=== PATIENT | female | born 1990 | race African-American/Black ===

== ENCOUNTER 2024-12-06 16:17 | Outpatient (AMB) | payer OTHER, SELFPAY ==
[2024-12-06 16:27] VITALS: BP 101/56; PULSE 84; TEMP 36.6; O2SAT 100; BMI 33.2
--- NOTE | 2024-12-06 16:27 | A.OFFPC_ITS ---
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 Accompanied by: Self / Same As Patient Allergies iodine Allergy (Severe, Verified 12/06/24 16:32) Anaphylaxis shellfish derived Allergy (Severe, Verified 12/06/24 16:43) Anaphylaxis Tobacco use date assessed: 12/06/24 Dental Screening Dental Screen Date: 12/06/24 Did you have a dental visit in the last 12 months?: Yes Did you have a dental problem in the last 6 months where you did not have access to dental care?: No Was dental information given to patient?: Patient has dentist HPI HPI Comments History of Present Illness Details History of Present Illness The patient is a 34-year-old female presenting for management of asthma, insomnia, and evaluation for sleep apnea. Asthma: - The patient reports well-controlled as thma with the use of albuterol and Wixela, with the last exacerbation occurring two weeks ago requiring nebulizer therapy. Insomnia: - The patient experiences significant in somnia, previously treated with mental health medications, which led to non-functionality, prompting discontinuation. Suspected Sleep Apnea: - The patient reports symptoms suggestiv e of sleep apnea, including snoring, daytime fatigue, and episodes of apnea observed by her . Gastritis: - The patient has a history of gastritis , which is a chronic condition. Cholelithiasis: - The patient is being referred to a gen eral surgeon for evaluation of gallstones and potential cholecystectomy. Review of Systems - Respiratory: Reports well-controlled a sthma with occasional exacerbations. Denies current dyspnea or wheezing. - Neurological: Reports insomnia and day time fatigue. Denies headaches or dizziness. - Gastrointestinal: Reports chronic srikanth ritis. Denies abdominal pain or nausea. - Sleep: Reports snoring, observed apnea , and daytime fatigue. 10-point ROS reviewed and negative excep t as noted in HPI Past Medical History - Asthma, controlled with albuterol and Wixela - Insomnia, previously treated with ment al health medications - Gastritis Health Maintenance - Referral to emergency veterinary assistant for weight ma nagement - Sleep study referral for evaluation of sleep apnea - Referral to general surgeon for evalua tion of gallstones Physical Exam General: Well-appearing, in no acute distress. Vital signs: Within normal limits. HEENT: Normocephalic, atraumatic. PERRLA, EOMI. Conjunctiva clear, sclera anicteric. Oropharynx clear, mucous membranes moist. TMs intact bilaterally. Neck: Supple, no lymphadenopathy, no thyromegaly, no JVD or carotid bruits. Cardiovascular: RRR, normal S1/S2, no murmurs, rubs, or gallops. Peripheral pulses 2+ and symmetric. No edema. Respiratory: Lungs clear to auscultation bilaterally, no wheezes, rales, or rhonchi. Normal effort. Patient reports asthma is well-controlled with Albuterol and Wixela. Abdomen: Soft, non-tender, non-distended. Normoactive bowel sounds. No hepatosplenomegaly, no masses. History of gastritis noted. MSK: Full range of motion, no joint swelling or deformity. Normal gait. Skin: Warm, dry, intact. No rashes, lesions, or pallor. Neuro: Alert and oriented x3. Cranial nerves II-XII intact. Strength 5/5 throughout. Sensation intact. Reflexes 2+ symmetric. Normal coordination and gait. Psych: Appropriate mood and affect. Normal judgment and insight. Patient reports history of insomnia and anxiety, previously treated with mental health medications. Plan 1. Asthma - Continue current asthma management wit h albuterol and Wixela. Monitor for exacerbations and adjust treatment as needed. 2. Insomnia - Evaluate current sleep hygiene and con main line assembler non-pharmacological interventions to improve sleep quality. 3. Suspected Sleep Apnea - Conduct a sleep study to confirm the d iagnosis of sleep apnea and determine appropriate treatment options. 4. Gastritis - Continue monitoring gastritis symptoms and consider dietary modifications to manage symptoms. 5. Cholelithiasis - Referral to a general surgeon for eval uation and discussion of potential cholecystectomy. Discussion Notes I discussed with the patient the management of her asthma, including the continuation of her current medications, albuterol and Wixela. We also talked about her insomnia and the importance of evaluating her sleep hygiene. I recommended a sleep study to assess for sleep apnea and referred her to a general surgeon for evaluation of gallstones. Additionally, I advised her to see a emergency veterinary assistant for weight management. Patient was informed and verbally consented to the use of an ambient scribe for clinic note documentation during this visit. Patient Instructions - Continue using albuterol and Wixela as prescribed for asthma. - Follow up with a sleep study to malinda roberts for sleep apnea. - Schedule an appointment with a general surgeon to discuss gallstones. - Consult with a emergency veterinary assistant for dietar y advice and weight management. [facility] Medical History (Updated 12/06/24 @ 16:50 by Dannie Galvan MD) Sleep apnea Fatigue Snoring Insomnia Vitamin D deficiency, unspecified Biliary calculi Family History (Updated 12/06/24 @ 16:53 by NOLBERTO Mcguire) Mother Diabetes Hypertension Father No known health problems Maternal Grandmother Diabetes Social History Housing: House Patient Tobacco Use Status: Never used Tobacco e-Cigarette/Vaping Use: Never Used service: No Current occupational status: employed Cognitive needs: No Hearing needs: No Vision needs: No Questionnaire PHQ-9 Over the last 2 weeks, how often have you been bothered by any of the following problems? 1. Little interest or pleasure in doing things: several days 2. Feeling down, depressed, or hopeless: several days 3. Trouble falling or staying asleep, or sleeping too much: several days 4. Feeling tired or having little energy: several days 5. Poor appetite or overeating: several days 6. Feeling bad about yourself - or that you are a failure or have let yourself or your family down: several days 7. Trouble concentrating on things, such as reading the newspaper or watching television: not at all 8. Moving or speaking so slowly that other people could have noticed. Or the opposite - being so fidgety or restless that you have been moving around a lot more than usual: not at all 9. Thoughts that you would be better off or of hurting yourself in some way: not at all Total score: 6 Depression Screening Interpretation: Negative Depression Screening Done: Yes Source: Developed by Drs. Wily Frankel, Zeenat Rodriguez, Arthur Bazan and colleagues, with an educational benedict from [employer]. Thrive Questionnaire I am a: Patient What is your living situation today?: I have a steady place to live Within the past 12 months, did the food you bought not last and you didn't have the money to get more?: Never true Within the past 12 months, did you worry whether your food would run out before you got money to buy more?: Sometimes True Do you have trouble paying for medicines?: No Do you have trouble getting transportation to medical appointments?: No Do you have trouble paying your heating and electricity bill?: No Do you have trouble taking care of your child, family member or friend?: No Are you currently unemployed and looking for a job?: No Are you interested in more education?: No Please select the resources that you would like help with: None Currently or been in a relationship where the following occur: I choose not to answer THRIVE Score: 1 AUDIT C Alcohol Use Questionnaire (AUDIT-C) 1. How often do you have a drink containing alcohol?: Never Total Score: 0 BRETT-7 AMB Questionnaire BRETT-7 Feeling nervous, anxious, or on edge: 1 = Several days Not being able to stop or control worryin = Nearly every day Worrying too much about different things: 3 = Nearly every day Trouble relaxin = Nearly every day Being so restless that it is hard to sit still: 1 = Several days Becoming easily annoyed or irritable: 3 = Nearly every day Feeling afraid as if something awful might happen: 3 = Nearly every day Total BRETT-7 score (0-4 normal; 5-9 mild; 10-14 moderate; 15-21 severe): 17 Source: Developed by Drs. Wily Frankel, Zeenat Rodriguez, Arthur Bazan and colleagues, with an educational benedict from [employer]. ACT Questionnaire In the past 4 weeks, how much of the time did your asthma keep you from getting as much done at work, school or at home?: Some of the time During the past 4 weeks, how often have you had shortness of breath?: 1-2 times a week During the past 4 weeks, how often did your asthma symptoms wake you up at night or earlier than usual in the morning?: Once or twice per week During the past 4 weeks, how often have you had to use your rescue inhaler or nebulizer medication?: 2-3 times a week How would you rate your asthma control during the past 4 weeks?: Somewhat controlled Score: 17 Physical exam (Primary Care) Vital Signs: Last Vital Signs Temp 97.9 F 12/06/24 16:27 Pulse 84 12/06/24 16:27 BP 101/56 L 12/06/24 16:27 Pulse Ox 100 12/06/24 16:27 BMI result Body Mass Index 33.2 Tobacco/Smoking Status: Tobacco use Status Tobacco use date assessed 12/06/24 12/06/24 16:54 Patient Tobacco Use Status Never used Tobacco 12/06/24 16:54 e-Cigarette/Vaping Use Never Used 12/06/24 16:54 PHQ-9: PHQ-9 Score PHQ-9: Total score 6 12/06/24 16:43 Depression Screening Interpretation: Negative Currently or been in a relationship where the following occur: I choose not to answer Coding Level of Care Code New Pt Level 3 (71705) Diagnoses Fibromyalgia M79.7 Encounter to establish care Z76.89 Encounter for screening, unspecified Z13.9 Counseling, unspecified Z71.9 Screening for hypertension Z13.6 Screening for lipoid disorders Z13.220 Screening for diabetes mellitus Z13.1 Screening for depression Z13.31 Routine screening for STI (sexually transmitted infection) Z11.3 Screening for HIV (human immunodeficiency virus) Z11.4 Adjustment disorder with anxiety F43.22 Class 1 obesity E66.811 Insomnia G47.00 Snoring R06.83 Fatigue R53.83 Sleep apnea G47.30 Biliary calculi K80.20 Mild persistent asthma J45.30 Gastritis K29.70 Assessment & Plan Assessment & Plan (1) Fibromyalgia: Code(s): M79.7 - Fibromyalgia Category: Medical (2) Encounter to establish care: Code(s): Z76.89 - Persons encountering health services in other specified circumstances (3) Encounter for screening, unspecified: Code(s): Z13.9 - Encounter for screening, unspecified (4) Counseling, unspecified: Code(s): Z71.9 - Counseling, unspecified (5) Screening for hypertension: Code(s): Z13.6 - Encounter for screening for cardiovascular disorders (6) Screening for lipoid disorders: Code(s): Z13.220 - Encounter for screening for lipoid disorders (7) Screening for diabetes mellitus: Code(s): Z13.1 - Encounter for screening for diabetes mellitus (8) Screening for depression: Code(s): Z13.31 - Encounter for screening for depression (9) Routine screening for STI (sexually transmitted infection): Code(s): Z11.3 - Encounter for screening for infections with a predominantly sexual mode of transmission (10) Screening for HIV (human immunodeficiency virus): Code(s): Z11.4 - Encounter for screening for human immunodeficiency virus [HIV] (11) Adjustment disorder with anxiety: Code(s): F43.22 - Adjustment disorder with anxiety (12) Class 1 obesity: Code(s): E66.811 - Obesity, class 1 (13) Insomnia: Code(s): G47.00 - Insomnia, unspecified Category: Medical (14) Snoring: Code(s): R06.83 - Snoring Category: Medical (15) Fatigue: Code(s): R53.83 - Other fatigue Category: Medical (16) Sleep apnea: Code(s): G47.30 - Sleep apnea, unspecified Category: Medical (17) Biliary calculi: Code(s): K80.20 - Calculus of gallbladder without cholecystitis without obstruction Category: Medical (18) Mild persistent asthma: Code(s): J45.30 - Mild persistent asthma, uncomplicated (19) Gastritis: Code(s): K29.70 - Gastritis, unspecified, without bleeding Plan Orders: Orders Complete Blood Count Auto Diff Today Z13.9 - Encounter for screening, unspecified, Z76.89 - Persons encountering health services in other specified circumstances Comprehensive Met. Panel Today Z13.9 - Encounter for screening, unspecified, Z76.89 - Persons encountering health services in other specified circumstances Hepatitis B Surface Antibody Today Z13.9 - Encounter for screening, unspecified, Z76.89 - Persons encountering health services in other specified circumstances Magnesium Today Z13.9 - Encounter for screening, unspecified, Z76.89 - Persons encountering health services in other specified circumstances Vitamin D 1,25 dihydroxy Today Z13.9 - Encounter for screening, unspecified, Z76.89 - Persons encountering health services in other specified circumstances Hemoglobin A1c Today Z13.9 - Encounter for screening, unspecified, Z76.89 - Persons encountering health services in other specified circumstances Hepatitis B Surface Antigen Today Z13.9 - Encounter for screening, unspecified, Z76.89 - Persons encountering health services in other specified circumstances Hepatitis C Antibody Today Z13.9 - Encounter for screening, unspecified, Z76.89 - Persons encountering health services in other specified circumstances HIV Ab/Ag Today Z13.9 - Encounter for screening, unspecified, Z76.89 - Persons encountering health services in other specified circumstances Lipid Panel Today Z13.9 - Encounter for screening, unspecified, Z76.89 - Persons encountering health services in other specified circumstances TSH reflex Free T4 Today Z13.9 - Encounter for screening, unspecified, Z76.89 - Persons encountering health services in other specified circumstances UA CC w/rflx Micro + Cult Today Z13.9 - Encounter for screening, unspecified, Z76.89 - Persons encountering health services in other specified circumstances Vitamin B12 and Folate Today Z13.9 - Encounter for screening, unspecified, Z76.89 - Persons encountering health services in other specified circumstances Referrals Nutrition/Dietitian Referral E66.811 - Obesity, class 1
== END 2024-12-06 17:03 | disposition home or self-care (01) ==
LOC: HO.HMCFMS 16:17
PROVIDERS: PCP Student in an Organized Health Care Education/Training Program; Visit Provider Student in an Organized Health Care Education/Training Program
DX: M79.7 Fibromyalgia (principal); F43.22 Adjustment disorder with anxiety; E66.811 Obesity, class 1; G47.00 Insomnia, unspecified; R06.83 Snoring; Z68.33 Body mass index [BMI] 33.0-33.9, adult; R53.83 Other fatigue; G47.30 Sleep apnea, unspecified; K80.20 Calculus of gallbladder without cholecystitis without obstruction; J45.30 Mild persistent asthma, uncomplicated; K29.70 Gastritis, unspecified, without bleeding

== ENCOUNTER → 2024-12-06 16:17 | Outpatient (BNVA) | payer OTHER, SELFPAY | PROVIDERS: PCP Student in an Organized Health Care Education/Training Program; Visit Provider Student in an Organized Health Care Education/Training Program | DX: Z76.89 Persons encountering health services in other specified circumstances (principal); J45.30 Mild persistent asthma, uncomplicated; M79.7 Fibromyalgia; F43.22 Adjustment disorder with anxiety; E66.811 Obesity, class 1; Z68.33 Body mass index [BMI] 33.0-33.9, adult; G47.00 Insomnia, unspecified; R06.83 Snoring; R53.83 Other fatigue; G47.30 Sleep apnea, unspecified; K80.20 Calculus of gallbladder without cholecystitis without obstruction; K29.70 Gastritis, unspecified, without bleeding; Z13.31 Encounter for screening for depression | CPT/HCPCS: 96160; 99202 ==

== ENCOUNTER 2024-12-11 08:02 | Outpatient (REF) | payer OTHER, SELFPAY ==
--- OUTSIDE RECORDS SUMMARY | 2024-12-11 08:16 | XMS_ITS | Patient Health Record ---
Author Organization Formerly [facility] n Address [address] [place] [address] Care Team Providers Care Deputy Director Of Finance Name Role Phone Lamont Wiggins Primary Care Provider [phone] Sanket Edmonds Unavailable [phone] Rosalia Antunez Unavailable Remigio Sutherland Unavailable [phone] [facility] Unavailable [phone] Opal Jasso Unavailable Jim Faria Unavailable [phone] Allergies Allergen (clinical drug ingredient) Drug/Non Drug Allergy documented on EMR Reaction Allergy Type Onset Date Status Iodine anaphylaxis Drug Allergy Activ e Shellfish (FN) Shellfish-derived Products anaphylaxis Drug Allergy Active Results Component Value Reference Range Notes HEPATITIS ACUTE PANEL Reviewed date:07/10/2024 03:00:33 PM Interpretation: Performing Lab: Notes/Report: Hep A IgM Non Reactive NON REACTIVE Hep B Core IgM Non Reactive NON REACTIVE Hep C Ab (IgM/IgG) Non Reactive NON REACTIVE IMRL LIC 338 Instrument: cadence 8000 Method: ELECTROCHEMILUMINISCENCE IMMUNOASSAY ECLIA Since: 04/10/2021 REFERENCE VALUE: NON REACTIVE HAV IgM:Hepatitis A Virus IgM. Present during the recent acute phase of infections. Appearance 4-6 weeks and disappearance 3-4 months. About half of those tested in [place] have had this form of hepatitis. HEP Bcore IgM:is a reliable marker for acute disease for hepatitis B infection. At times this marker is the only one demostrated for the diagnosis of a hepatitis B viral infection. Appearance 2-12 weeks and disapperance 3-6 months.. HEP Bs Ag:Hepatitis Bs Antigen. Earliest indicator of the presence of acute infection;if the level of this antigen persists in the blood,the patient is considered to be a carrier. Appearance 4-12 weeks and disapperance 1-3 months. HEP C:Hepatitis C Virus Antibodies. Indicates that the patient has presumptive evidence of infection with HCV. The incubation period is 2 to 26 weeks after exposure. Appearance 1-4 months and disappearance 2 years. For diagnostic purposes, the results should always be assessed in conjuntion with the patient's medical history, clinical examination and other findings. HEPATITIS C: Assay performance characteritics have not been established by cash processing specialist for ,infants children, or populations of immunocompromised or immunosuppressed patients. IMMUNO REFERENCE ESTABLISH VALIDATION FOR IMMUNOCROMPROMISED OR IMMUNOSUPPRESSED PATIENTS. FOR PEDIATRICS ESTABLISH INFANTS,AND CHILDREN (5 TO 17 YEARS). SINCE August MT: HALINA. JEWEL CASTILLO LIC. 7109 Hep Bs Ag Non Reactive NON REACTIVE TSH Reviewed date:07/10/2024 03:00:33 PM Interpretation: Performing Lab: Notes/Report: VITAMINA D-25 OH HYDROXY Reviewed date:07/10/2024 03:00:33 PM Interpretation: Performing Lab: Notes/Report: T4 FREE Reviewed date:07/10/2024 03:00:33 PM Interpretation: Performing Lab: Notes/Report: RPR Reviewed date:07/10/2024 03:00:33 PM Interpretation: Performing Lab: Notes/Report: A1C(GLYCOHEMOGLOBIN) Reviewed date:07/10/2024 03:00:33 PM Interpretation:Normal Performing Lab: Notes/Report: Microalbumin and Creatinine Ratio Reviewed date:07/10/2024 03:00:33 PM Interpretation: Performing Lab: Notes/Report: [facility] LIC 338 Method: OH CHANA [id number] SINCE MAY 30, 2014 Method: cadence 8000 SINCE APRIL 21, 2021 NORMAL VALUES FOR CREATININE, SPOT URINE: NOT ESTABLISHED. NORMAL VALUE FOR MICROALBUMIN, SPOT URINE: LESS THAN 3.0 mg/dL. ALBUMINURIA CATEGORIES IN CKD (Albumin Creatinine Ratio): Spot collection Stage (mg/g creatinine) A1 Normal < 30 A2 Moderately increased 30 - 299 A3 Clinical albuminuria >= 300 RECHECKED BY REPEAT TESTING. MT: MARYJUANCHO. JEWEL CASTILLO LIC. 7109 CHLAMYDIA/GONORRHOEAE Reviewed date:07/10/2024 03:00:33 PM Interpretation: Performing Lab: Notes/Report: [facility] LIC 338 REFERENCE VALUE: NEGATIVE Method: Since 05/31/2014 HOLOGIC [place]. Neisseria gonorrhoeae is one of the common sexually transmitted diseases (STD) in the whole world. It is the gutierrez approach to early and fast diagnosis for early treatment and shutting infection off. Neisseria gonorrhoeae causes acute urethritis in males, which if untreated can develop into epididymitis, prostatitis, and urethral stricture. In females, the primary site of infection is the endocervix. An important complication i females is development of pelvic inflammatory desease which contributes to infertility. Asymptomatic infections occur often in females but in frequently in males. Chlamydia trachomatis is one of the most significant sexually transmitted human pathogens. Chlamydia trachomatis causes urethritis, cervicitis, proctitis, salpingitis and endometritis in women and epidimitis and proctitis in men. If early diagnosis and treatment fail, these infections can result in acute epidymitis in the male, or pelvic inflammatory disease in the female. Many chlamydial infections in women remain untreated which may result in low-grated inflammation in the Fallopian tubes, a leading contributor to infertility. This organism can also be transmitted in the canal, potentially resulting in conjunctivitis. MT: HALINA. JEWEL CASTILLO LIC. 7109 HIV 1/2 5th generation Reviewed date:07/10/2024 03:00:33 PM Interpretation: Performing Lab: Notes/Report: [facility] LIC 338 If REACTIVE results follow up the HIV-1/2 antibody differentiation assay. [facility] has introduced a next generation HIV assay with the [employer] BioPlex 2200 HIV Ag-Ab assay. This is the first commercial screening assay to be able to distinguish between HIV-1 antibodies, HIV-2 antibodies and HIV-1 p24 antigen in serum or plasma samples. In addition to the early detection offered by 4th generation assays, this 5th Generation assay provides more information by specifically identifying HIV-1 or HIV-2 and allows results of antigen and antibody detection to be reported individually. Because antigens and antibodies are detectable at different stages of the infection, reporting of both helps to differentiate between acute and established HIV infection. HIV-1 and HIV-2 are the two types of HIV, with HIV-1 being the most widespread worldwide. The two viruses are similar but distinct and different, which means that tests targeted to one type, will not detect the other. The [employer]lex 2200 HIV Ag-Ab assay is a multiplex flow immunoassay intended for the simultaneous qualitative detection and differentiation of the individual analytes HIV-1 p24 antigen, HIV-1 (groups M and O) antibodies, and HIV-2 antibodies in a single reaction vessel using a mixture of four populations of dyed microparticles. A specimen found to be initially reactive, should be retested in duplicate using a sample from the original source. Reactivity in either or both of these duplicate tests, is highly predictive of the presence of HIV-1, p24 and/or HIV-2 antibodies in people at increased risk for HIV infection. However,because of possible non-specific reactions due to other causes, it is appropriate to do further testing (example: HIV Confirmation Test and HIV PCR ). MT: HALINA. [address]EWEL [address]STILL[address] LIC. 7109 CMP Reviewed date:07/10/2024 03:00:33 PM Interpretation: Performing Lab: Notes/Report: LIPID PANEL Reviewed date:07/10/2024 03:00:33 PM Interpretation: Performing Lab: Notes/Report: CBC W/ DIFF Reviewed date:07/10/2024 03:00:33 PM Interpretation: Performing Lab: Notes/Report: [Nemo CAGLEMPR / $.05 / ILME / [id number] / [id number] / 0] COMMENT METHOD: BY SYSMEX XN-550 MT: HALINA. JEWEL [address]STILL[address] LIC. 7109 URINALISIS Reviewed date:07/10/2024 03:00:33 PM Interpretation: Performing Lab: Notes/Report: Pap Smear, 1 Slide Reviewed date:07/17/2024 10:58:47 AM Interpretation:Abnormal Performing Lab: Notes/Report: Abnormal DIAGNOSIS: LSIL HPV, high-risk Reviewed date:07/17/2024 10:58:47 AM Interpretation:Positive Performing Lab: Notes/Report: Positive HPV, high-risk Positive Reason For Referral Reason Please evaluate marissa ent presenting RUQ pain that worsen when eating fatty foods on abdomen US cholelithiasis Diagnosis 1 Cholelithiasis (K80. 20) Referral Organization [facility] Referring Provider First Name Rosalia Referring Provider Last Name Simone amguire Referring Provider Speciality General Pr actice Referred Provider Specialty Surgery Referral Priority Routine Medications Medication SIG (Take, Route, Frequency, Duration) Notes Start Date End Date Status Ondansetron HCl 8 MG Tablet 1 tablet as needed Orally Once a day; Duration: 30 day(s) 12/07/2022 Unknown Wixela Inhub 250-50 MCG/ACT Aerosol Powder Breath Activated 1 puff Inhalation Twice a day; Duration: 30 days 09/01/2023 Unknown Albuterol Sulfate HFA 108 (90 Base) MCG/ACT Aerosol Solution 2 puff as needed Inhalation every 6 hrs; Duration: 30 days 09/01/2023 Unknown Albuterol Sulfate (2.5 MG/3ML) 0.083% Nebulization Solution 1 amp Inhalation every 4-6 hrs; Duration: 30 days 08/29/2022 Unknown Fluticasone Propionate HFA 110 MCG/ACT Aerosol 2 puffs Inhalation Twice a day 03/31/2023 Unknown Albuterol Sulfate HFA 108 (90 Base) MCG/ACT Aerosol Solution 2 puffs Inhalation every 4-6 hours 08/29/2022 Unknown Pepcid 20 MG Tablet 1 tablet at bedtime as needed Orally Once a day; Duration: 30 day(s) 12/07/2022 Unknown Social History Tobacco Use: Social History Observation Description Date Details (start date - stop date) Never Smoker NA - NA Sex Assigned At : Social History Observation Description Sex Assigned At Female Social History Social Determinants Social Info Question Answer Notes PRAPARE Date Completed/Updated: 09/13/2024 What is your current housing situation? I have h ousing Are you worried about losing your housing? No What is the highest level of school that you have finished? High school diploma or GED What is your current work situation? Unemployed and seeking work In the past year, have you o r any family members you live with been unable to get any of the following when it was really needed? Check all that apply I do not have problems meeting my needs Has lack of transportation k ept you from medical appointments, meetings, work or from getting things needed for daily living? No How often do you see or talk to people that you care about and feel close to? (For example: talking to friends on the phone, visiting friends or family, going to quaker or club meetings) 3 to 5 times a week How stressed are you? Stress is when someone feels tense, nervous, anxious, or cant sleep at night because their mind is troubled Not at all PRAPARE Score: 5 Sexual History: Social Info Question Answer Notes Sexual Health Questionnaire Sexual History Yes Have you ever had vaginal sex? Yes How frequently have you use condoms during vaginal sex? Never How frequently have you used drugs before or during vaginal sex? Never In the last 90 days have you had vaginal sex? Yes Have you ever had anal sex? No STD History Yes Chlamydia? Yes Sexual Orientation Do you identify as transgender or t ransexual? No Sexual History Had sex in the past 12 months (vaginal, oral, or anal)? Yes with Men only Use protection? No Have you ever had a Sexually transmitted disease ? Yes Chlamydia? Yes GC? No Syphilis? No Herpes? No Other? No Last menstrual period 09/01/2024 Drugs/Alcohol: Social Info Question Answer Notes Drugs Have you used drugs other than those for medical reasons in the past 12 months? Yes Marijuana? Yes Alcohol Screen Did you have a drink containing alcohol in the past year? Yes How often did you have a drink containing alcohol in the past year? Monthly or less (1 point) How many drinks did you have on a typical day when you were drinking in the past year? 1 or 2 drinks (0 point) Points 1 Interpretation Negative PCMH: Social Info Question Answer Notes Mental health/substance use history of patient and family (11 years and older) Do you currently use or have a history of using any drugs? No Communication Needs (1 year and older) Which Communication Need? None Fuctional Status Bathing Able to do this without help Dressing Able to do this without help Eating Able to do this without help Toileting Able to do this without help Transferring (walking, getting in and out of bed ) Able to this without help Do you need help from others to take care of things such as laundry and housekeeping, banking, shopping, using the telephone, food preparation, transportation or taking your own medications? Able to do this without help Does patient have primary hess pport person who helps with his/her daily living activities? N/A Post-Hospital/ED Visit Follow-Up Have yo u been admitted to an ER or Hospital? No Social functioning (18 years and older) Do you suffer from social anxiety Yes How comfortable are you whil e interact with other people in everyday social tasks? Comfortable Medication Therapy Adherence Olvida alguna vez mela los medicamentos para tratar hess enfermedad? Not under pharmacologic therapy Karol los medicamentos a las horas indicadas? Not under pharmacologic therapy Cuando se encuentra zulay, de ja de mela la medicacion? Not under pharmacologic ther apy Si alguna vez le sienta mal, jewell usted de mela la? Not under pharmacologic therapy Family/social/cultural elly cteristics (21 year and older) Are you currently employed? No Social Support System Living with Children What is your education level? GED Behaviors affecting health (1 year and older) Risky se xual behaviour No Oral Health Has not visited dentist in the l ast year Nutrition Eating a balanced diet Second hand smoke exposure No Physical activity No Tobacco Use: Social Info Question Answer Notes Tobacco Use/Smoking Are you a never smoker Tobacco use other than smoking: Are you an other tobac co user? Yes Problems Problem Type SNOMED Code ICD Code Onset Dates Problem Status W/U Status Risk Notes Problem Morbid obesity (disorder) (242191943) Morbid (severe) obesity due to excess calories (E66.01) Active confirmed Problem Hypercalcemia (15393537) Hypercalcemia (E83.52) Active confirmed Problem Chronic rhinitis (57168862) Chronic rhinitis (J31.0) Active confirmed Problem Fibromyalgia (671825256) Fibromyalgia (M79.7) Active confirmed Problem Vitamin D deficiency (14835321) Vitamin D deficiency (E55.9) Active confirmed Problem Acid reflux (496211078) Acid reflux (K21.9) Active confirmed Problem Dyslipidemia (719106401) Dyslipidemia (E78.5) Active confirmed Problem Exacerbation of mild persistent asthma (849824982) Mild intermittent asthma with acute exacerbation (J45.21) Active confirmed Problem Hyperlipoproteinemia (9826491) Acquired hyperlipoproteinemia (E78.5) Active confirmed Problem 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) Active confirmed Problem Acute asthma (052258117) Acute asthma (J45.909) Active confirmed Problem Obese class I (259518258400566) BMI 33.0-33.9,adult (Z68.33) Active confirmed Problem History of depressio n (079482600) History of depression (Z86.59) Active confirmed Problem Cholelithiasis (911888886) Cholelithiasis (K80.20) Active confirmed Problem Recurrent major depression in remission (42011479) Recurrent major depressive disorder, in partial remission (F33.41) Active confirmed Problem Uncomplicated moderate persistent asthma (297868111) Moderate persistent asthma, unspecified whether complicated (J45.40) Active confirmed Problem Chlamydial infection (234159944) Chlamydia infection (A74.9) Problem resolved confirmed Vital Signs Heart Rate 82 /min 08/04/2024 Se recibe pacie nte alerta en tiempo, lugar y espacio. Verbaliza asistir para realizar biopsia de colposcopia ordenada por ginecologo. Se realiza la karol de vitales y se reportan. Paciente se realiza prueba de embarazo de orina a la cual arroja negativo, es orientada sobre las nuevas guias de detencion temprana del cancer. Se orienta paciente a esperar en prasanna para evaluacion medica. Temperature 36.5 C 08/04/2024 Se recibe pacie nte alerta en tiempo, lugar y espacio. Verbaliza asistir para realizar biopsia de colposcopia ordenada por ginecologo. Se realiza la karol de vitales y se reportan. Paciente se realiza prueba de embarazo de orina a la cual arroja negativo, es orientada sobre las nuevas guias de detencion temprana del cancer. Se orienta paciente a esperar en prasanna para evaluacion medica. Respiratory Rate 19 /min 08/04/2024 Se recibe p aciente alerta en tiempo, lugar y espacio. Verbaliza asistir para realizar biopsia de colposcopia ordenada por ginecologo. Se realiza la karol de vitales y se reportan. Paciente se realiza prueba de embarazo de orina a la cual arroja negativo, es orientada sobre las nuevas guias de detencion temprana del cancer. Se orienta paciente a esperar en prasanna para evaluacion medica. Oximetry 100 % 08/04/2024 Se recibe pacie nte alerta en tiempo, lugar y espacio. Verbaliza asistir para realizar biopsia de colposcopia ordenada por ginecologo. Se realiza la karol de vitales y se reportan. Paciente se realiza prueba de embarazo de orina a la cual arroja negativo, es orientada sobre las nuevas guias de detencion temprana del cancer. Se orienta paciente a esperar en prasanna para evaluacion medica. Blood pressure diastolic 68 mm Hg 08/04/2024 Se recibe paciente alerta en tiempo, lugar y espacio. Verbaliza asistir para realizar biopsia de colposcopia ordenada por ginecologo. Se realiza la karol de vitales y se reportan. Paciente se realiza prueba de embarazo de orina a la cual arroja negativo, es orientada sobre las nuevas guias de detencion temprana del cancer. Se orienta paciente a esperar en prasanna para evaluacion medica. Height 5 ft 2 in in 08/04/2024 Se recibe pacie nte alerta en tiempo, lugar y espacio. Verbaliza asistir para realizar biopsia de colposcopia ordenada por ginecologo. Se realiza la karol de vitales y se reportan. Paciente se realiza prueba de embarazo de orina a la cual arroja negativo, es orientada sobre las nuevas guias de detencion temprana del cancer. Se orienta paciente a esperar en prasanna para evaluacion medica. Blood pressure systolic 102 mm Hg 08/04/2024 Se r ecibe paciente alerta en tiempo, lugar y espacio. Verbaliza asistir para realizar biopsia de colposcopia ordenada por ginecologo. Se realiza la karol de vitales y se reportan. Paciente se realiza prueba de embarazo de orina a la cual arroja negativo, es orientada sobre las nuevas guias de detencion temprana del cancer. Se orienta paciente a esperar en prasanna para evaluacion medica. Weight 177 lb 0 oz lbs 08/04/2024 Se recibe pa ciente alerta en tiempo, lugar y espacio. Verbaliza asistir para realizar biopsia de colposcopia ordenada por ginecologo. Se realiza la karol de vitales y se reportan. Paciente se realiza prueba de embarazo de orina a la cual arroja negativo, es orientada sobre las nuevas guias de detencion temprana del cancer. Se orienta paciente a esperar en prasanna para evaluacion medica. BMI 32.37 kg/m2 08/04/2024 Se recibe pacie nte alerta en tiempo, lugar y espacio. Verbaliza asistir para realizar biopsia de colposcopia ordenada por ginecologo. Se realiza la karol de vitales y se reportan. Paciente se realiza prueba de embarazo de orina a la cual arroja negativo, es orientada sobre las nuevas guias de detencion temprana del cancer. Se orienta paciente a esperar en prasanna para evaluacion medica. Encounters Encounter Location Date Provider Diagnosis [facility] [address] [facility] [place] [id number] 04/05/2024 Rosalia Vargas [facility] [address] [place] [address] 04/05/2024 Sanket Mi [facility] [address] [place] [address] 04/07/2024 Sanket Mi [facility] [address] [place] [address] 06/08/2024 Remigio Gonzales Encounter for gynecological examination without abnormal finding Z01.419 ; Screening for malignant neoplasm of cervix Z12.4 and Pelvic pain R10.2 [facility] [address] [place] [address] 07/13/2024 Rosalia Vargas Moderate persistent asthma, unspecified whether complicated J45.40 ; Fibromyalgia M79.7 ; Dyslipidemia E78.5 ; Vitamin D deficiency E55.9 ; Acid reflux K21.9 ; Cholelithiasis K80.20 and Encounter for HIV (human immunodeficiency virus) test Z11.4 [facility] [address] [place] [address] 06/29/2024 Opal Parker Abdominal cramping in right upper quadrant R10.11 [facility] [address] [place] [address] 05/26/2024 Rosalia Vargas Dyslipidemia E78.5 ; Vitamin D deficiency E55.9 ; Chronic rhinitis J31.0 ; Moderate persistent asthma, unspecified whether complicated J45.40 ; Fibromyalgia M79.7 ; Recurrent major depressive disorder, in partial remission F33.41 ; Diabetes mellitus screening Z13.1 ; Encounter for screening for endocrine disorder Z13.29 ; Encounter for HIV (human immunodeficiency virus) test Z11.4 ; Encounter for screening examination for sexually transmitted disease Z11.3 and Right upper quadrant abdominal pain R10.11 [facility] [address] [place] [address] 06/29/2024 [facility] Dyslipidemia E78.5 ; Diabetes mellitus screening Z13.1 ; Encounter for screening for endocrine disorder Z13.29 ; Encounter for HIV (human immunodeficiency virus) test Z11.4 and Encounter for screening examination for sexually transmitted disease Z11.3 [facility] [address] [place] [address] 08/04/2024 Remigio Gonzales LGSIL on Pap smear of cervix R87.612 [facility] [address] [place] [address] 07/26/2024 Remigiojudah Gonzales LGSIL on Pap smear of cervix R87.612 [facility] [address] [place] [address] 09/13/2024 Remigio Lee Janet Encounter for routine examination for contraception Z01.419 Assessments Encounter Date Diagnosis (ICD Code) Assessment Notes Treatment Notes Treatment Clinical Notes Section Notes 05/26/2024 Dyslipidemia (ICD-10 - E78.5) 05/26/2024 Vitamin D deficiency (ICD-10 - E55.9) 06/29/2024 Abdominal cramping in right upper quadrant (ICD-10 - R10.11) 06/29/2024 Dyslipidemia (ICD-10 - E78.5) 07/13/2024 Moderate persistent asthma, unspecified whether complicated (ICD-10 - J45.40) 07/13/2024 Fibromyalgia (ICD-10 - M79.7) 06/08/2024 Encounter for gynecological examination without abnormal finding (ICD-10 - Z01.419) 07/26/2024 LGSIL on Pap smear of cervix (ICD-10 - R87.612) 08/04/2024 LGSIL on Pap smear of cervix (ICD-10 - R87.612) 09/13/2024 Encounter for routine examination for contraception (ICD-10 - Z01.419) 06/08/2024 Screening for malignant neoplasm of cervix (ICD-10 - Z12.4) 07/13/2024 Dyslipidemia (ICD-10 - E78.5) 06/29/2024 Diabetes mellitus screening (ICD-10 - Z13.1) 05/26/2024 Chronic rhinitis (ICD-10 - J31.0) 05/26/2024 Moderate persistent asthma, unspecified whether complicated (ICD-10 - J45.40) 06/29/2024 Encounter for screening for endocrine disorder (ICD-10 - Z13.29) 07/13/2024 Vitamin D deficiency (ICD-10 - E55.9) 06/08/2024 Pelvic pain (ICD-10 - R10.2) 07/13/2024 Acid reflux (ICD-10 - K21.9) 06/29/2024 Encounter for HIV (human immunodeficiency virus) test (ICD-10 - Z11.4) 05/26/2024 Fibromyalgia (ICD-10 - M79.7) 05/26/2024 Recurrent major depressive disorder, in partial remission (ICD-10 - F33.41) 06/29/2024 Encounter for screening examination for sexually transmitted disease (ICD-10 - Z11.3) 07/13/2024 Cholelithiasis (ICD-10 - K80.20) 07/13/2024 Encounter for HIV (human immunodeficiency virus) test (ICD-10 - Z11.4) HIV = neg 05/26/2024 Diabetes mellitus screening (ICD-10 - Z13.1) 05/26/2024 Encounter for screening for endocrine disorder (ICD-10 - Z13.29) 05/26/2024 Encounter for HIV (human immunodeficiency virus) test (ICD-10 - Z11.4) 05/26/2024 Encounter for screening examination for sexually transmitted disease (ICD-10 - Z11.3) 05/26/2024 Right upper quadrant abdominal pain (ICD-10 - R10.11) 05/26/2024 Other Health screenings for women ages 18 to 39 material was printed Patient oriented about condition and medications, risk vs benefits, possible adverse effects and when to look for assistance in case of an emergency, understood and agree. Patient oriented about importance of compliance with medications and medical recommendations in order to prevent any deterioration on his current medical condition.Oriented about lifestyle modifications including diet and exercise in order to prevent cardiovascular disease or deterioration of current conditions. Patient understood and agreed 06/08/2024 Other Pap test materi al was printed, HPV test material was printed 07/13/2024 Other Patient oriented about condition and medications, risk vs benefits, possible adverse effects and when to look for assistance in case of an emergency, understood and agree. Patient oriented about importance of compliance with medications and medical recommendations in order to prevent any deterioration on his current medical condition.Oriented about lifestyle modifications including diet and exercise in order to prevent cardiovascular disease or deterioration of current conditions. Patient understood and agreed 08/04/2024 Other Colposcopy - directed biopsy material was published Plan Of Treatment Pending Test Test Name Order Date HIV 03/09 5th generation 02/12/2022 VITAMINA D-25 OH HYDROXY 06/29/2024 BMP 03/27/2023 LIPID PANEL 03/27/2023 RPR 02/12/2022 CHLAMYDIA/GONORRHOEAE 02/12/2022 HEPATITIS B SURFACE ANTIGEN (HBSAg) 10/2021 HIV 1/2 5th generation 06/29/2024 CMP 06/29/2024 LIPID PANEL 06/29/2024 URINALISIS 06/29/2024 T4 FREE 06/29/2024 TSH 06/29/2024 CBC W/ DIFF 06/29/2024 RPR 06/29/2024 A1C(GLYCOHEMOGLOBIN) 06/29/2024 CHLAMYDIA/GONORRHOEAE 06/29/2024 HEPATITIS ACUTE PANEL 06/29/2024 Microalbumin and Creatinine Ratio 2024 Future Test Test Name Order Date HIV 1/2 5th generation 09/09/2021 CMP 09/09/2021 LIPID PANEL 09/09/2021 URINALISIS 09/09/2021 T4 FREE 09/09/2021 TSH 09/09/2021 CBC W/ DIFF 09/09/2021 RPR 09/09/2021 A1C(GLYCOHEMOGLOBIN) 09/09/2021 CHLAMYDIA/GONORRHOEAE 09/09/2021 HEPATITIS ACUTE PANEL 09/09/2021 BMP 03/05/2023 LIPID PANEL 03/05/2023 X ray : Chest with 2 views 09/01/2023 X ray : Sinuses 09/01/2023 THROAT CULTURE BACTERIAL 09/01/2023 CULTURE BACTERIAL: NOSE 09/01/2023 IgE 09/01/2023 CMP 09/01/2023 CBC W/ DIFF 09/01/2023 CMP 09/28/2023 LIPID PANEL 09/28/2023 US : ABDOMINOPELVIC 05/26/2024 VIT D3 05/26/2024 Endovaginal sonogram 06/08/2024 Insurance Providers Payer Name Payer Address Payer Phone Subscriber Number Group Number Insured Name Patient Relationship to Insured Coverage Start Date Coverage End Date [facility] [place], [place] [facility] [place] [address] [place], [place] [phone] [id number] Self - patient is the insured 8 Medical (General) History Medical History History ICD Code Fibromyalgia M79.7 Chlamydia infection A74.9 Mycoplasma infection A49.3 Mild intermittent asthma with acute exac erbation J45.21 URI with cough and congestion J06.9 Chlamydia infection (resolved 12/01/2022 ) undefined Surgical History Surgery Date(Month/Year) Sterilization 06/2018 Hospitalization History Reason Date(Month/Year) Dengue 09/2023 Asthma/ Hypoxia ([facility]) 11/2022 Asthma/ Mycoplasma/ Bronchitis ([facility] 08/2022
[2024-12-11 13:32] LABS: MANUAL DIFF FLAG NO
[2024-12-11 13:41] LABS: Appearance Urine Clear; Glucose Urine UA Negative (Negative); PH 6.0 (5.0-9.0); Specific Gravity - Urine 1.020 (1.005-1.025); UMIC TRIGGER UACC YES
[2024-12-11 13:45] LABS: Hematocrit 36.0 % (37.0-47.0); Hemoglobin 11.2 g/dl (12.0-16.0); Imm Gran Abs Auto 0.02 X10*3/uL (0.00-0.03); Imm Gran Pct Auto 0.2 % (0.0-0.4); Lymphocytes Absolute Auto 3.3 X10*3/uL (1.2-4.9); Mean Corpuscular HGB Conc 31.1 g/dl (31.0-35.0); Mean Corpuscular Hemoglobin 24.2 pg (27.0-33.0); Mean Corpuscular Volume 77.8 fL (80.0-98.0); NRBC Abs Auto 0.000 X10*3/uL (0.0-0.012); NRBC Pct Auto 0.0 /100WBC (0.0-0.2); Platelet Count 342 X10*3/uL (160-400); Red Blood Count 4.63 X10*6/uL (4.20-5.50); White Blood Count 8.7 X10*3/uL (4.8-10.8)
[2024-12-11 14:14] LABS: Alanine Aminotransferase 10 U/L (0-31); Albumin Level 4.4 g/dL (3.5-5.0); Alkaline Phosphatase 67 U/L (39-117); Anion Gap 11 (12-20); Aspartate Amino Transferase 27 U/L (5-31); Blood Urea Nitrogen 8 mg/dL (9-16); Calcium 9.6 mg/dL (8.4-10.2); Carbon Dioxide 25 mmol/L (22-29); Chloride 107 mmol/L (96-108); Cholesterol 177 mg/dL (<200); Estimated Glomerular Filt Rate > 60; HDL Cholesterol 53 mg/dL (>40); Magnesium 2.0 mg/dL (1.6-2.6); Potassium 3.8 mmol/L (3.3-5.1); Sodium 139 mmol/L (135-145); Total Protein 7.4 g/dL (6.5-8.0); Triglycerides 107 mg/dL (<150)
[2024-12-11 14:44] LABS: Folate 3.6 ng/mL (> or = 4.0); Vitamin B12 533 pg/mL (200-900)
[2024-12-12 07:58] LABS: HBS Num1 35.89 mIU/mL (0-7.99); HBsAGNum1 0.37 S/CO (0.00-0.99); HIV Num 1 0.06 S/CO (0.00-0.99); Hepatitis B Surface Antigen Negative (Negative); ~HepC Num1 0.26 S/CO (0.00-0.79); ~Hepatitis B Surface Antibody REACTIVE (Nonreactive); ~Hepatitis C Antibody Nonreactive (Nonreactive)
[2024-12-17 07:38] LABS: VITAMIN D (1,25 OH) D3 56 pg/mL; Vit D (1,25-Dihydroxy) Total 56 pg/mL (18-72); Vitamin D (1,25 OH) D2 <8 pg/mL
== END 2024-12-11 08:03 | disposition home or self-care (01) ==
LOC: HO.HKASLDS 08:02
PROVIDERS: PCP Student in an Organized Health Care Education/Training Program; Visit Provider Student in an Organized Health Care Education/Training Program
DX: Z76.89 Persons encountering health services in other specified circumstances (principal); Z13.89 Encounter for screening for other disorder; Z11.4 Encounter for screening for human immunodeficiency virus [HIV]; Z11.59 Encounter for screening for other viral diseases
CPT/HCPCS: 36415; 80053; 80061; 81001; 82607; 82652; 82746; 83036; 83735; 84443; 85025; 86706; 86803; 87340; 87389

== ENCOUNTER 2024-12-18 11:00 | Outpatient (AMB) | payer OTHER, SELFPAY ==
--- NOTE | 2024-12-18 11:00 | A.OFFPC_ITS ---
Vital Signs 12/18/24 11:01 Height 5 ft 0.43 in Weight 176 lb 4 oz BMI 33.9 BP 111/59 L Blood Pressure Location Rt brachial Position Sitting Pulse 92 Pulse Source Pulse Oximeter Temp 98.5 F Temp Source Oral Pulse Oximetry (%) 99 Oxygen Delivery Method Room Air Intake Visit Reasons: 2 wk f/u Clinical Lab Technologist Required: No Accompanied by: Self / Same As Patient Allergies iodine Allergy (Severe, Verified 12/18/24 11:02) Anaphylaxis shellfish derived Allergy (Severe, Verified 12/18/24 11:02) Anaphylaxis Tobacco use date assessed: 12/18/24 Dental Screening Dental Screen Date: 12/18/24 Did you have a dental visit in the last 12 months?: No Did you have a dental problem in the last 6 months where you did not have access to dental care?: No HPI HPI Comments History of Present Illness Details History of Present Illness The patient is a 34-year-old female presenting with medication refills and follow-up on chronic conditions. Asthma: - The patient has a history of asthma, m anaged with albuterol and Wixela. - She requires regular follow-up to claudia tor her condition. Gastroesophageal reflux disease (GERD): - The patient experiences symptoms of GE RD, including vomiting and discomfort after meals. - Symptoms are exacerbated by lying down soon after eating. Cholelithiasis: - The patient has gallstones, which are currently stable but may require surgical intervention if symptoms worsen. - She experiences cramp-like sensations and occasional vomiting, which may be related to the gallstones. Hyperlipidemia: - The patient's cholesterol levels are s lightly elevated, with LDL at 103 mg/dL. - She is advised to maintain a healthy d iet and exercise regularly. Iron deficiency: - The patient shows signs of iron defici ency, possibly due to heavy menstrual bleeding. - She is advised to take iron supplement s to address this deficiency. Review of Systems - Gastrointestinal: Reports vomiting and discomfort after meals, exacerbated by lying down soon after eating. - Respiratory: Reports asthma managed wi th albuterol and Wixela. 10-point ROS reviewed and negative excep t as noted in HPI Past Medical History - Asthma - Gastroesophageal reflux disease (GERD) - Cholelithiasis - Hyperlipidemia - Iron deficiency Health Maintenance - Asset Card Clerk appointment scheduled for dietary management. - Advised to maintain a healthy diet and regular exercise to manage cholesterol levels. Physical Exam General: Well-appearing, in no acute distress. Vital signs: Within normal limits. HEENT: Normocephalic, atraumatic. PERRLA, EOMI. Conjunctiva clear, sclera anicteric. Oropharynx clear, mucous membranes moist. TMs intact bilaterally. Neck: Supple, no lymphadenopathy, no thyromegaly, no JVD or carotid bruits. Cardiovascular: RRR, normal S1/S2, no murmurs, rubs, or gallops. Peripheral pulses 2+ and symmetric. No edema. Respiratory: Lungs clear to auscultation bilaterally, no wheezes, rales, or rhonchi. Normal effort. Abdomen: Soft, non-tender, non-distended. Normoactive bowel sounds. No hepatosplenomegaly, no masses. Patient reports occasional cramping sensation, sometimes accompanied by vomiting, but no acute pain. MSK: Full range of motion, no joint swelling or deformity. Normal gait. Skin: Warm, dry, intact. No rashes, lesions, or pallor. Neuro: Alert and oriented x3. Cranial nerves II-XII intact. Strength 5/5 throughout. Sensation intact. Reflexes 2+ symmetric. Normal coordination and ga it. Psych: Appropriate mood and affect. Normal judgment and insight. Plan 1. Asthma - Continue current asthma management wit h albuterol and Wixela. - Follow-up in three months to monitor a sthma control. 2. Gastroesophageal Reflux Disease (Gerd ) - Advised to avoid lying down immediatel y after meals to reduce GERD symptoms. - Consider dietary modifications to bonifacio ge symptoms. 3. Cholelithiasis - Monitor gallstone symptoms and conside r elective surgical removal if symptoms worsen. - Patient advised to consult a surgeon kelli jones ready for potential intervention. 4. Hyperlipidemia - Encouraged to maintain a healthy diet and regular exercise to manage cholesterol levels. 5. Iron Deficiency - Prescribed iron supplements to address deficiency. 6. sleep apnea patient is interested in home sleep study since she reports periods of sleep apnea Discussion Notes During the visit, we discussed the management of asthma with current medications and the importance of regular follow-up. We also addressed GERD symptoms and advised lifestyle modifications to alleviate discomfort. The patient was informed about the potential need for surgical intervention for gallstones if symptoms worsen. We reviewed cholesterol levels and emphasized the importance of diet and exercise. Iron deficiency was noted, and supplementation was recommended. Follow-up appointments and referrals were discussed as needed. Patient was informed and verbally consented to the use of an ambient scribe for clinic note documentation during this visit. Patient Instructions - Continue using albuterol and Wixela fo r asthma management. - Avoid lying down immediately after nadya ls to reduce GERD symptoms. - Maintain a healthy diet and regular ex ercise to manage cholesterol levels. - Take prescribed iron supplements to ad dress deficiency. - Schedule a follow-up appointment in . - Consult a surgeon if gallstone symptom s worsen. - at home sleep study ordered Total time spent caring for the patient today was 30 minutes. This includes time spent before the visit reviewing the chart, time spent documenting, and time spent reviewing laboratory results, diagnostic imaging, medications, performing a medically necessary evaluation, counseling on diagnoses. [facility] Medical History (Updated 12/18/24 @ 11:47 by Dannie Galvan MD) Iron deficiency anemia Sleep apnea Fatigue Snoring Insomnia Vitamin D deficiency, unspecified Biliary calculi Family History Mother Diabetes Hypertension Father No known health problems Maternal Grandmother Diabetes Social History Housing: House Patient Tobacco Use Status: Never used Tobacco e-Cigarette/Vaping Use: Never Used service: No Current occupational status: employed Cognitive needs: No Hearing needs: No Vision needs: Yes (rx glasses) Questionnaire PHQ-9 Over the last 2 weeks, how often have you been bothered by any of the following problems? 1. Little interest or pleasure in doing things: several days 2. Feeling down, depressed, or hopeless: several days 3. Trouble falling or staying asleep, or sleeping too much: several days 4. Feeling tired or having little energy: several days 5. Poor appetite or overeating: several days 6. Feeling bad about yourself - or that you are a failure or have let yourself or your family down: several days 7. Trouble concentrating on things, such as reading the newspaper or watching television: not at all 8. Moving or speaking so slowly that other people could have noticed. Or the opposite - being so fidgety or restless that you have been moving around a lot more than usual: not at all 9. Thoughts that you would be better off or of hurting yourself in some way: not at all Total score: 6 Depression Screening Interpretation: Negative Depression Screening Done: Yes Source: Developed by Drs. Wily Frankel, Zeenat Rodriguez, Arthur Bazan and colleagues, with an educational benedict from [employer]. Thrive Questionnaire Date Thrive assessed: 12/18/24 I am a: Patient What is your living situation today?: I have a steady place to live Within the past 12 months, did the food you bought not last and you didn't have the money to get more?: Never true Within the past 12 months, did you worry whether your food would run out before you got money to buy more?: Sometimes True Do you have trouble paying for medicines?: No Do you have trouble getting transportation to medical appointments?: No Do you have trouble paying your heating and electricity bill?: No Do you have trouble taking care of your child, family member or friend?: No Do you have trouble with day-to-day activities such as bathing, preparing meals, shopping, managing finances, etc.?: No Are you currently unemployed and looking for a job?: No Are you interested in more education?: No Please select the resources that you would like help with: None Currently or been in a relationship where the following occur: I choose not to answer THRIVE Score: 1 AUDIT C Alcohol Use Questionnaire (AUDIT-C) 2. How many drinks containing alcohol do you have on a typical day when you are drinking?: 1 or 2 3. How often do you have six or more drinks on one occasion?: Never Total Score: 0 BRETT-7 AMB Questionnaire BRETT-7 Date BRETT - 7 assessed: 12/18/24 Feeling nervous, anxious, or on edge: 1 = Several days Not being able to stop or control worryin = Nearly every day Worrying too much about different things: 3 = Nearly every day Trouble relaxin = Nearly every day Being so restless that it is hard to sit still: 1 = Several days Becoming easily annoyed or irritable: 3 = Nearly every day Feeling afraid as if something awful might happen: 3 = Nearly every day Total BRETT-7 score (0-4 normal; 5-9 mild; 10-14 moderate; 15-21 severe): 17 Source: Developed by Drs. Wily Frankel, Zeenat Rodriguez, Arthur Bazan and colleagues, with an educational benedict from [employer]. Physical exam (Primary Care) Vital Signs: Last Vital Signs Temp 98.5 F 12/18/24 11:01 Pulse 92 12/18/24 11:01 BP 111/59 L 12/18/24 11:01 Pulse Ox 99 12/18/24 11:01 Oxygen Delivery Method Room Air 12/18/24 11:01 BMI result Body Mass Index 33.9 Tobacco/Smoking Status: Tobacco use Status Tobacco use date assessed 12/18/24 12/18/24 11:05 Patient Tobacco Use Status Never used Tobacco 12/18/24 11:00 e-Cigarette/Vaping Use Never Used 12/18/24 11:00 PHQ-9: PHQ-9 Score PHQ-9: Total score 6 12/18/24 11:05 Depression Screening Interpretation: Negative Thrive Assessment: Date of Thrive Assessment Date Thrive assessed 12/18/24 12/18/24 11:05 Currently or been in a relationship where the following occur: I choose not to answer Coding Level of Care Code Tele Est Pt Level 4 (47022) Diagnoses Snoring R06.83 Dyslipidemia E78.5 Biliary calculi K80.20 GERD (gastroesophageal reflux disease) K21.9 Sleep apnea G47.30 Insomnia G47.00 Fatigue R53.83 Asthma, moderate persistent J45.40 Iron deficiency anemia D50.9 Assessment & Plan Assessment & Plan (1) Snoring: Comment: Code(s): R06.83 - Snoring Category: Medical (2) Dyslipidemia: Code(s): E78.5 - Hyperlipidemia, unspecified Category: Medical (3) Biliary calculi: Code(s): K80.20 - Calculus of gallbladder without cholecystitis without obstruction Category: Medical (4) GERD (gastroesophageal reflux disease): Code(s): K21.9 - Gastro-esophageal reflux disease without esophagitis Category: Medical (5) Sleep apnea: Code(s): G47.30 - Sleep apnea, unspecified Category: Medical (6) Insomnia: Code(s): G47.00 - Insomnia, unspecified Category: Medical (7) Fatigue: Code(s): R53.83 - Other fatigue Category: Medical (8) Asthma, moderate persistent: Code(s): J45.40 - Moderate persistent asthma, uncomplicated Category: Medical (9) Iron deficiency anemia: Code(s): D50.9 - Iron deficiency anemia, unspecified Category: Medical Plan Orders: Orders RT home sleep study Today G47.00 - Insomnia, unspecified, G47.30 - Sleep apnea, unspecified, R06.83 - Snoring Medications: New famotidine (Pepcid) 20 mg PO DAILY 90 tabs 0RF loratadine 10 mg PO DAILY 90 tabs 0RF sulindac 200 mg PO BID 30 tabs 0RF albuterol sulfate 90 mcg/actuation (Ventolin HFA) 2 puffs inhalation Q6H PRN 8.5 grams 0RF asthma fluticasone propion-salmeterol 250-50 mcg/dose (Wixela Inhub) 1 inh inhalation BID 60 ea 0RF J45.40 - Moderate persistent asthma, uncomplicated ferrous sulfate 325 mg PO DAILY 90 tabs 0RF ascorbic acid (vitamin C) 500 mg PO DAILY 90 tabs 0RF
[2024-12-18 11:01] VITALS: BP 111/59; PULSE 92; TEMP 36.9; O2SAT 99; BMI 33.9
== END 2024-12-18 11:38 | disposition home or self-care (01) ==
LOC: HO.HMCFMS 11:00
PROVIDERS: PCP Student in an Organized Health Care Education/Training Program; Visit Provider Student in an Organized Health Care Education/Training Program
DX: R06.83 Snoring (principal); E78.5 Hyperlipidemia, unspecified; K80.20 Calculus of gallbladder without cholecystitis without obstruction; K21.9 Gastro-esophageal reflux disease without esophagitis; G47.30 Sleep apnea, unspecified; G47.00 Insomnia, unspecified; R53.83 Other fatigue; J45.40 Moderate persistent asthma, uncomplicated; D50.9 Iron deficiency anemia, unspecified